=== PATIENT | female | born 1990 | race Caucasian/White ===

== ENCOUNTER 2020-09-22 21:03 | Emergency (ER) | payer BC, OTHER ==
[2020-09-22 21:13] VITALS: BP 137/87; PULSE 125
[2020-09-22] MEDS ORDERED: Sodium Chloride 0.9% 10 ML Syringe FLUSH PRN (21:23)
[2020-09-22] MEDS ORDERED: LORazepam 2 MG/ML SDV IVPUSH ONE (21:24)
[2020-09-22] MEDS ORDERED: Sodium Chloride 0.9% 1,000 ML IV SCH (21:30)
--- NOTE | 2020-09-22 21:31 | EDM.PDOC ---
ED HPI GENERAL MEDICAL PROBLEM - General Chief Complaint: Neurological Problem Stated Complaint: seizures had 3 this evening Time Seen by Provider: 09/22/20 21:12 Source of Information: Reports: Patient History Limitations: Reports: No Limitations - History of Present Illness INITIAL COMMENTS - FREE TEXT/NARRATIVE: The patient presents with a seizure. She says in the past 2 hours she has had 3 seizures. They have lasted a few seconds. They are generalized. She has a history of seizures and she is on lamictal and oxcarbazipine. She says after she gave in November she started to have seizures. She has seen neurologist and now she is under the care of neurology in [facility]. She had CT and MRI of her head. She has not missed any doses of her medications. She has not drank alcohol. She is getting enough sleep and she is eating and drinking okay. She has no fever, chills, cough, congestion, runny nose, chest pain or shortness of breath. She says she does have a little sore throat tonight. Onset: Sudden Duration: Hour(s): Location: Reports: Other (throat) Quality: Reports: Sharp Severity: Mild Improves with: Reports: None Worsens with: Reports: None Associated Symptoms: Reports: No Other Symptoms - Related Data Allergies Allergy/AdvReac Type Severity Reaction Status Date / Time zucchini Allergy Swelling Uncoded 09/22/20 21:13 Home Meds: Home Meds Loratadine [Claritin] 10 mg PO DAILY PRN 06/03/15 [History] LORazepam [Ativan] 1 mg PO DAILY PRN #6 tablet 09/22/20 [Rx] Lamictal. 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 Musculoskeletal History: Reports: Back Pain, Chronic - Past Surgical History HEENT Surgical History: Reports: Tonsillectomy Female Surgical History: Reports: Breast Biopsy, Other (See Below) Other Female Surgeries/Procedures: breast lumpectomy (benign) Musculoskeletal Surgical History: Reports: Other (See Below) Other Musculoskeletal Surgeries/Procedures:: back surgery Social & Family History - Tobacco Use Tobacco Use Status *Q: Never Tobacco User Second Hand Smoke Exposure: No - Caffeine Use Caffeine Use: Reports: None - Recreational Drug Use Recreational Drug Use: No ED ROS GENERAL - Review of Systems Review Of Systems: See Below Constitutional: Reports: No Symptoms HEENT: Reports: Throat Pain Respiratory: Reports: No Symptoms Cardiovascular: Reports: No Symptoms Endocrine: Reports: No Symptoms GI/Abdominal: Reports: No Symptoms : Reports: No Symptoms Musculoskeletal: Reports: No Symptoms - Physical Exam Exam: See Below Exam Limited By: No Limitations General Appearance: Alert, No Apparent Distress Ears: Normal External Exam Nose: Normal Inspection Throat/Mouth: Normal Inspection Head Exam: Atraumatic, Normocephalic Neck: Normal Inspection, Supple, Non-Tender Respiratory/Chest: No Respiratory Distress, Lungs Clear, Normal Breath Sounds Cardiovascular: Regular Rate, Rhythm, No Edema, No Murmur GI/Abdominal: Soft, Non-Tender, No Organomegaly, No Mass Neuro Exam (Abbreviated): Alert, Oriented, No Motor/Sensory Deficits Course - Vital Signs Last Recorded V/S: Last Vital Signs Temp 98.1 F 09/22/20 21:10 Pulse 125 H 09/22/20 21:10 Resp 16 09/22/20 21:10 BP 137/87 09/22/20 21:10 Pulse Ox 97 09/22/20 21:10 - Orders/Labs/Meds Orders: Active Orders 24 hr Category Date Time Status Cardiac Monitoring [RC] . DIRECTED Care 09/22/20 21:23 Active Peripheral IV Care [RC] . DIRECTED Care 09/22/20 21:24 Active LAMOTRIGINE, SERUM [REF] Stat Lab 09/22/20 21:25 Received OXCARBAZEPINE [REF] Stat Lab 09/22/20 21:25 Received Sodium Chloride 0.9% [Normal Saline] 1,000 ml Med 09/22/20 21:30 Active IV .BOLUS Sodium Chloride 0.9% [Saline Flush] Med 09/22/20 21:23 Active 10 ml FLUSH ASDIRECTED PRN Peripheral IV Insertion Adult [OM.PC] Stat Oth 09/22/20 21:23 Ordered Medication Orders Sodium Chloride (Normal Saline) 1,000 mls @ 1,000 mls/hr IV .BOLUS YARA Last Admin: 09/22/20 21:32 Dose: 1,000 mls/hr Documented by: MARTHA Sodium Chloride (Saline Flush) 10 ml FLUSH ASDIRECTED PRN PRN Reason: Keep Vein Open Last Admin: 09/22/20 21:34 Dose: 10 ml Documented by: MARTHA Labs: Laboratory Tests 09/22/20 09/22/20 09/22/20 Range/Units 21:25 21:25 21:25 WBC 5.27 (3.98-10.04) K/mm3 RBC 4.29 (3.98-5.22) M/mm3 Hgb 12.8 (11.2-15.7) gm/dl Hct 38.1 (34.1-44.9) % MCV 88.8 (79.4-94.8) fl MCH 29.8 (25.6-32.2) pg MCHC 33.6 (32.2-35.5) g/dl RDW Std Deviation 38.9 (36.4-46.3) fL Plt Count 340 (182-369) K/mm3 MPV 8.1 L (9.4-12.3) fl Neut % (Auto) 56.2 (34.0-71.1) % Lymph % (Auto) 30.6 (19.3-51.7) % [place] % (Auto) 9.7 (4.7-12.5) % Eos % (Auto) 2.5 (0.7-5.8) Baso % (Auto) 0.8 (0.1-1.2) % Neut # (Auto) 2.97 (1.56-6.13) K/mm3 Lymph # (Auto) 1.61 (1.18-3.74) K/mm3 [place] # (Auto) 0.51 H (0.24-0.36) K/mm3 Eos # (Auto) 0.13 (0.04-0.36) K/mm3 Baso # (Auto) 0.04 (0.01-0.08) K/mm3 Sodium 138 (136-145) mEq/L Potassium 4.2 (3.5-5.1) mEq/L Chloride 101 (98-107) mEq/L Carbon Dioxide 26 (21-32) mEq/L Anion Gap 15.2 H (5-15) BUN 9 (7-18) mg/dL Creatinine 1.2 H (0.55-1.02) mg/dL Est Cr Clr Drug Dosing 61.36 mL/min Estimated GFR (MDRD) 53 (>60) mL/min BUN/Creatinine Ratio 7.5 L (14-18) Glucose 70 L (74-106) mg/dL Calcium 9.3 (8.5-10.1) mg/dL Magnesium 2.2 (1.8-2.4) mg/dl Total Bilirubin 0.1 L (0.2-1.0) mg/dL AST 24 (15-37) U/L ALT 31 (14-59) U/L Alkaline Phosphatase 51 (46-116) U/L Total Protein 7.9 (6.4-8.2) g/dl Albumin 3.9 (3.4-5.0) g/dl Globulin 4.0 gm/dL Albumin/Globulin Ratio 1.0 (1-2) HCG, Qual Negative (NEGATIVE) Urine Color (Yellow) Urine Appearance (Clear) Urine pH (5.0-8.0) Ur Specific [place] (1.005-1.030) Urine Protein (Negative) Urine Glucose (UA) (Negative) Urine Ketones (Negative) Urine Occult Blood (Negative) Urine Nitrite (Negative) Urine Bilirubin (Negative) Urine Urobilinogen (0.2-1.0) Ur Leukocyte Esterase (Negative) Urine RBC (0-5) /hpf Urine WBC (0-5) /hpf Ur Epithelial Cells (0-5) /hpf Urine Bacteria (FEW) /hpf Urine Mucus (FEW) /hpf 09/22/ Range/Units 22:24 WBC (3.98-10.04) K/mm3 RBC (3.98-5.22) M/mm3 Hgb (11.2-15.7) gm/dl Hct (34.1-44.9) % MCV (79.4-94.8) fl MCH (25.6-32.2) pg MCHC (32.2-35.5) g/dl RDW Std Deviation (36.4-46.3) fL Plt Count (182-369) K/mm3 MPV (9.4-12.3) fl Neut % (Auto) (34.0-71.1) % Lymph % (Auto) (19.3-51.7) % [place] % (Auto) (4.7-12.5) % Eos % (Auto) (0.7-5.8) Baso % (Auto) (0.1-1.2) % Neut # (Auto) (1.56-6.13) K/mm3 Lymph # (Auto) (1.18-3.74) K/mm3 [place] # (Auto) (0.24-0.36) K/mm3 Eos # (Auto) (0.04-0.36) K/mm3 Baso # (Auto) (0.01-0.08) K/mm3 Sodium (136-145) mEq/L Potassium (3.5-5.1) mEq/L Chloride (98-107) mEq/L Carbon Dioxide (21-32) mEq/L Anion Gap (5-15) BUN (7-18) mg/dL Creatinine (0.55-1.02) mg/dL Est Cr Clr Drug Dosing mL/min Estimated GFR (MDRD) (>60) mL/min BUN/Creatinine Ratio (14-18) Glucose (74-106) mg/dL Calcium (8.5-10.1) mg/dL Magnesium (1.8-2.4) mg/dl Total Bilirubin (0.2-1.0) mg/dL AST (15-37) U/L ALT (14-59) U/L Alkaline Phosphatase (46-116) U/L Total Protein (6.4-8.2) g/dl Albumin (3.4-5.0) g/dl Globulin gm/dL Albumin/Globulin Ratio (1-2) HCG, Qual (NEGATIVE) Urine Color Yellow (Yellow) Urine Appearance Clear (Clear) Urine pH 6.5 (5.0-8.0) Ur Specific [place] 1.020 (1.005-1.030) Urine Protein Negative (Negative) Urine Glucose (UA) Negative (Negative) Urine Ketones Negative (Negative) Urine Occult Blood Negative (Negative) Urine Nitrite Negative (Negative) Urine Bilirubin Negative (Negative) Urine Urobilinogen 0.2 (0.2-1.0) Ur Leukocyte Esterase Negative (Negative) Urine RBC 0-5 (0-5) /hpf Urine WBC 0-5 (0-5) /hpf Ur Epithelial Cells 0-5 (0-5) /hpf Urine Bacteria Few (FEW) /hpf Urine Mucus Few (FEW) /hpf Meds: Medications Generic Name Dose Route Start Last Admin Trade Name Fre[place] PRN Reason Stop Dose Admin Sodium Chloride 1,000 mls @ 1,000 mls/hr 09/22/20 21:30 09/22/20 21:32 Normal Saline IV 1,000 mls/hr .BOLUS YARA Administration Sodium Chloride 10 ml 09/22/20 21:23 09/22/20 21:34 Saline Flush FLUSH 10 ml ASDIRECTED PRN Administration Keep Vein Open Discontinued Medications Generic Name Dose Route Start Last Admin Trade Name Freq PRN Reason Stop Dose Admin Lorazepam 1 mg 09/22/20 21:24 09/22/20 21:32 Ativan IVPUSH 09/22/20 21:25 1 mg ONETIME ONE Administration - Re-Assessments/Exams Free Text/Narrative Re-Assessment/Exam: 09/22/20 21:30 I ordered an IV NS 1L bolus, ativan 1mg IV, labs and a UA. 09/22/20 22:58 Her CBC looks good. Her anion gap was elevated at 15.2. Her creatinine was elevated at 1.2. Her glucose was 70. Her HCG is negative. Her UA shows no UTI. She feels better. I will give her a couple doses of ativan to take and she can call her neurologist on Thursday. Departure - Departure Time of Disposition: 23:00 Disposition: Home, Self-Care 01 Condition: Good Clinical Impression: Seizure - Discharge Information *PRESCRIPTION DRUG MONITORING PROGRAM REVIEWED*: Not Applicable *COPY OF PRESCRIPTION DRUG MONITORING REPORT IN PATIENT NANCY: Not Applicable Prescriptions: LORazepam [Ativan] 1 mg PO DAILY PRN #6 tablet PRN Reason: Seizures Referrals: PCP,Not In Area [Primary Care Provider] - Forms: ED Department Discharge Additional Instructions: Drink plenty of fluids. Take your medications as prescribed. Take the ativan every 8 hours as needed for seizures. Please return if you are worse. Sepsis Event Note (ED) - Evaluation Sepsis Screening Result: No Definite Risk - Focused Exam Vital Signs: Vital Signs Temp Pulse Resp BP Pulse Ox 09/22/20 21:10 98.1 F 125 H 16 137/87 97 - My Orders Last 24 Hours: My Active Orders 09/22/20 21:23 Cardiac Monitoring [RC] . DIRECTED Sodium Chloride 0.9% [Saline Flush] 10 ml FLUSH ASDIRECTED PRN Peripheral IV Insertion Adult [OM.PC] Stat 09/22/20 21:24 Peripheral IV Care [RC] . DIRECTED 09/22/20 21:25 LAMOTRIGINE, SERUM [REF] Stat OXCARBAZEPINE [REF] Stat 09/22/20 21:30 Sodium Chloride 0.9% [Normal Saline] 1,000 ml IV .BOLUS - Assessment/Plan Last 24 Hours: My Active Orders 09/22/20 21:23 Cardiac Monitoring [RC] . DIRECTED Sodium Chloride 0.9% [Saline Flush] 10 ml FLUSH ASDIRECTED PRN Peripheral IV Insertion Adult [OM.PC] Stat 09/22/20 21:24 Peripheral IV Care [RC] . DIRECTED 09/22/20 21:25 LAMOTRIGINE, SERUM [REF] Stat OXCARBAZEPINE [REF] Stat 09/22/20 21:30 Sodium Chloride 0.9% [Normal Saline] 1,000 ml IV .BOLUS
== END 2020-09-22 23:16 | disposition home or self-care (01) ==
LOC: JD.ED 21:03
DX: R56.9 Unspecified convulsions (principal); Z88.8 Allergy status to other drugs, medicaments and biological substances; Z79.899 Other long term (current) drug therapy
CPT/HCPCS: 36415; 80053; 80175; 80183; 81001; 83735; 84703; 85025; 96374; 99284; J2060; J7030

== ENCOUNTER 2020-09-26 22:41 | Emergency (ER) | payer OTHER ==
[2020-09-26 22:57] VITALS: BP 127/86; PULSE 100
--- NOTE | 2020-09-27 00:13 | EDM.PDOCBH ---
ED HPI GENERAL MEDICAL PROBLEM - General Chief Complaint: Behavioral/Psych Stated Complaint: withdrawl from pills and poss seizures Time Seen by Provider: 09/26/20 23:38 Source of Information: Reports: Patient History Limitations: Reports: No Limitations - History of Present Illness INITIAL COMMENTS - FREE TEXT/NARRATIVE: Mrs. Jeronimo is a very pleasant 30-year-old woman who now presents to the ED for medical clearance in order to go to [facility] for treatment of tramadol abuse. She states that she has been on tramadol since approximately 2009, following lumbar microdiscectomy, but that she has been abusing it, taking up to 6 to 8 tablets/day (not every day) for the past 1.5 to 2 years. Her last dose was around 21:00 tonight. She states that she is prescribed tramadol by numerous prescribers, including her pain clinical safety manager, however, in a review of the [facility], I find that all of her prescriptions for tramadol have been prescribed by her pain clinical safety manager, with the last prescription for tramadol not written by her pain clinical safety manager on 02/20/2018. Her most recent prescription for tramadol was for 240 tablets, a 30-day supply (8 tablets per day), filled on 08/17/2020. The patient states that she met her new Psychiatrist 2 days ago, and that her Psychiatrist uncovered her abuse and recommended treatment at [facility]. The patient states that her Psychiatrist started her on Effexor, while at the same time, her Neurologist started her on clonazepam 0.5 mg po BID; she states that she took her first dose of clonazepam this morning, but it had a much more profound effect than she anticipated, therefore she has not taken an evening dose. The patient states that she has stopped tramadol several times in the past, although she has never previously been to drug treatment. The patient may have a seizure disorder. It is not clear if the patient is suffering from seizures or pseudoseizures. She states that she has undergone numerous EEGs, none of which showed epileptiform activity, however, she is currently being treated with lamotrigine, and is also tapering off of oxcarbazepine because it does not seem to be doing anything. Medical records indicate that she was seen in this ED this past 09/22/2020 for a report of 3 seizures in the prior 2 hours, each lasting only a few seconds. No precipitators were identified. She was found to be tachycardic at 125 bpm, ot herwise, she was hemodynamically stable, afebrile, saturating 97% on room air. Her physical exam, including her neurologic exam, was entirely unremarkable. Work-up included a CBC, CMP, magnesium level, urinalysis, and urine test. Her entire work-up was completely normal, including no elevation of WBC count or blood glucose, which would be unusual in the setting of a recent genuine seizure. She was treated with 1 L of IV fluid and 1 mg of IV lorazepam, then discharged home with a prescription for 6 tablets of lorazepam 1 mg, to be taken every 8 hours as needed. There was no mention to the Emergency Physician at that time of her use of tramadol, nor did she report to the triage nurse tramadol on her medication list. Here in the ED tonight, the patient is found to be hemodynamically stable, afebrile, saturating 98% on room air. She states that she is not suffering from any withdrawal symptoms at this time. The patient denies having a recent fever, chills, sore throat, ear pain, nasal or sinus congestion, cough, dyspnea, chest pain, palpitations, nausea, vomiting, constipation, diarrhea, abdominal pain, urinary symptoms, recent weight gain or weight loss, recent bloody bowel movements or black bowel movements, recent joint aches, headaches, or rashes. The patient's PCP is Zoey Ghosh NP, in [place]. Her Psychiatrist is Dr. Fatmata Gilmore. Her Neurologist is Dr. Sander Clarke, at [facility]. Her pain clinical safety manager is Tina Zepeda NP, in [place]. She has already received an influenza vaccine this season. Back Pain Score (Numeric/FACES): 5 - Related Data Allergies Allergy/AdvReac Type Severity Reaction Status Date / Time zucchini Allergy Severe Swelling Uncoded 09/26/20 22:57 Home Meds: Home Meds Loratadine [Claritin] 10 mg PO DAILY PRN 06/03/15 [History] Mirtazapine 15 mg PO BEDTIME 09/22/20 [History] OXcarbazepine [Oxtellar Xr] 300 mg PO DAILY 09/22/20 [History] Acetaminophen/Codeine [Tylenol with Codeine No.3 300MG/30MG] 1 - 2 tab PO TID PRN 09/26/20 [History] ClonazePAM [KlonoPIN] 0.5 mg PO BID 09/26/20 [History] EPINEPHrine [Auvi-Q] 1 applic INJECT ASDIRECTED PRN 09/26/20 [History] LORazepam [Ativan] 0.25 mg PO DAILY PRN 09/26/20 [History] LORazepam [Ativan] 1 mg PO ASDIRECTED PRN 09/26/20 [History] Loratadine [Claritin] 10 mg PO ASDIRECTED PRN 09/26/20 [History] Venlafaxine [Effexor XR] 37.5 mg PO DAILY 09/26/20 [History] lamoTRIgine [Lamotrigine] 150 mg PO BID 09/26/20 [History] Past Medical History HEENT History: Reports: Allergic Rhinitis Neurological History: Reports: Seizure (vs pseudoseizures, since Nov 2019) Psychiatric History: Reports: Addiction (tramadol), Anxiety, Depression - Past Surgical History HEENT Surgical History: Reports: Adenoidectomy, Oral Surgery (dental extractons), Tonsillectomy Female Surgical History: Reports: Breast Biopsy (right, benign) Neurological Surgical History: Reports: Lumbar Spine (L5-S1 microdiscectomy, 2009) Social & Family History - Tobacco Use Tobacco Use Status *Q: Never Tobacco User - Caffeine Use Caffeine Use: Reports: Coffee, Soda - Alcohol Use Alcohol Use History: No Date/Time of Last Drink Comment: None since 2016 or 2017 - Recreational Drug Use Recreational Drug Use: Yes Drug Use in Last 12 Months: Yes Recreational Drug Type: Reports: Other (see below) (Tramadol abuse 2017 until 09/26/2020) - Living Situation & Occupation Living situation: Reports: , with Spouse, with Family (1 baby) 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 ED EXAM, BEHAVIORAL HEALTH - Physical Exam Exam: See Below Exam Limited By: No Limitations General Appearance: Alert, No Apparent Distress, Thin Eye Exam: Bilateral Eye: EOMI, Normal Inspection Ears: Normal External Exam, Hearing Grossly Normal Nose: Normal Inspection Throat/Mouth: Normal Inspection, Normal Lips, Normal Voice, No Airway Compromise Head: Atraumatic, Normocephalic Neck: Normal Inspection, Full Range of Motion Respiratory/Chest: No Respiratory Distress, Lungs Clear, Normal Breath Sounds, No Accessory Muscle Use Cardiovascular: Normal Peripheral Pulses, Regular Rate, Rhythm, No Edema, No Gallop, No JVD, No Murmur, No Rub GI/Abdominal: Normal Bowel Sounds, Soft, Non-Tender, No Organomegaly, No Distention, No Abnormal Bruit, No Mass Back Exam: Normal Inspection, Full Range of Motion, NT Extremities: Normal Inspection, Normal Range of Motion, No Pedal Edema, Normal Capillary Refill Neurological: Alert, Normal Cognition, No Motor/Sensory Deficits, Oriented x 3 Psychiatric: Normal Affect Skin Exam: Warm, Dry, Intact, Normal color, No rash #1 Interpretation EKG Date: 09/27/20 Time: 00:19 Rhythm: Other (Sinus tachycardia) Rate (Beats/Min): 102 [place]: Normal (borderline RAD) P-Wave: Enlarged (LAE) QRS: Normal ST-T: Normal QT: Prolonged (QTc 488 ms) Comparison: NA - No Prior EKG COURSE, BEHAVIORAL HEALTH COMP - Course Vital Signs: Last Vital Signs Temp 36.6 C 09/26/20 22:55 Pulse 100 09/26/20 22:55 Resp 20 09/26/20 22:55 BP 127/86 09/26/20 22:55 Pulse Ox 98 09/26/20 22:55 Orders, Labs, Meds: Active Orders 24 hr Category Date Time Status EKG Documentation Completion [RC] STAT Care 09/27/20 00:10 Active Laboratory Tests 09/27/20 09/27/20 09/27/20 Range/Units 00:20 00:20 00:20 WBC 5.77 (3.98-10.04) K/mm3 RBC 4.18 (3.98-5.22) M/mm3 Hgb 12.2 (11.2-15.7) gm/dl Hct 38.3 (34.1-44.9) % MCV 91.6 (79.4-94.8) fl MCH 29.2 (25.6-32.2) pg MCHC 31.9 L (32.2-35.5) g/dl RDW Std Deviation 40.4 (36.4-46.3) fL Plt Count 291 (182-369) K/mm3 MPV 8.5 L (9.4-12.3) fl Neutrophils % (Manual) 49 (40-60) % Band Neutrophils % 0 (0-10) % Lymphocytes % (Manual) 41 H (20-40) % Atypical Lymphs % 0 % Monocytes % (Manual) 1 L (2-10) % Eosinophils % (Manual) 7 H (0.7-5.8) % Basophils % (Manual) 2 H (0.1-1.2) Platelet Estimate Adequate RBC Morph Comment Normal Sodium 139 (136-145) mEq/L Potassium 4.9 (3.5-5.1) mEq/L Chloride 104 (98-107) mEq/L Carbon Dioxide 31 (21-32) mEq/L Anion Gap 8.9 (5-15) BUN 10 (7-18) mg/dL Creatinine 1.1 H (0.55-1.02) mg/dL Est Cr Clr Drug Dosing 66.94 mL/min Estimated GFR (MDRD) 58 (>60) mL/min BUN/Creatinine Ratio 9.1 L (14-18) Glucose 85 (74-106) mg/dL Calcium 9.3 (8.5-10.1) mg/dL Magnesium 2.0 (1.8-2.4) mg/dl Total Bilirubin 0.1 L (0.2-1.0) mg/dL AST 26 (15-37) U/L ALT 38 (14-59) U/L Alkaline Phosphatase 47 (46-116) U/L Total Protein 7.2 (6.4-8.2) g/dl Albumin 3.5 (3.4-5.0) g/dl Globulin 3.7 gm/dL Albumin/Globulin Ratio 1.0 (1-2) TSH 3rd Generation 3.919 H (0.358-3.74) uIU/mL Urine HCG, Qual (NEGATIVE) Salicylates 1.3 L (2.8-20) mg/dL Urine Opiates Screen (LRPUCL=448) Ur Buprenorphine Scrn (CUTOFF=10) Ur Oxycodone Screen (NQJ7XA=610) Urine Methadone Screen (EHSPUG=378) Ur Propoxyphene Screen (TICQPO=375) Acetaminophen 0 L (10-30) ug/mL Ur Barbiturates Screen (GBJBBP=750) Ur Tricyclics Screen (TQPOJS=129) Ur Phencyclidine Scrn (CUTOFF=25) Ur Amphetamine Screen (AZSVZR=293) U Methamphetamines Scrn (BETRDA=948) U Benzodiazepines Scrn (SVEIOX=886) U Cocaine Metab Screen (WILKLS=581) U Marijuana (THC) Screen (CUTOFF=50) Ethyl Alcohol 0.00 (0.00) gm% 09/27/20 09/27/20 Range/Units 00:40 00:40 WBC (3.98-10.04) K/mm3 RBC (3.98-5.22) M/mm3 Hgb (11.2-15.7) gm/dl Hct (34.1-44.9) % MCV (79.4-94.8) fl MCH (25.6-32.2) pg MCHC (32.2-35.5) g/dl RDW Std Deviation (36.4-46.3) fL Plt Count (182-369) K/mm3 MPV (9.4-12.3) fl Neutrophils % (Manual) (40-60) % Band Neutrophils % (0-10) % Lymphocytes % (Manual) (20-40) % Atypical Lymphs % % Monocytes % (Manual) (2-10) % Eosinophils % (Manual) (0.7-5.8) % Basophils % (Manual) (0.1-1.2) Platelet Estimate RBC Morph Comment Sodium (136-145) mEq/L Potassium (3.5-5.1) mEq/L Chloride (98-107) mEq/L Carbon Dioxide (21-32) mEq/L Anion Gap (5-15) BUN (7-18) mg/dL Creatinine (0.55-1.02) mg/dL Est Cr Clr Drug Dosing mL/min Estimated GFR (MDRD) (>60) mL/min BUN/Creatinine Ratio (14-18) Glucose (74-106) mg/dL Calcium (8.5-10.1) mg/dL Magnesium (1.8-2.4) mg/dl Total Bilirubin (0.2-1.0) mg/dL AST (15-37) U/L ALT (14-59) U/L Alkaline Phosphatase (46-116) U/L Total Protein (6.4-8.2) g/dl Albumin (3.4-5.0) g/dl Globulin gm/dL Albumin/Globulin Ratio (1-2) TSH 3rd Generation (0.358-3.74) uIU/mL Urine HCG, Qual Negative (NEGATIVE) Salicylates (2.8-20) mg/dL Urine Opiates Screen Presumptive positive H (AVKYOR=474) Ur Buprenorphine Scrn Negative (CUTOFF=10) Ur Oxycodone Screen Negative (RZW6IP=083) Urine Methadone Screen Negative (SMLSMY=168) Ur Propoxyphene Screen Negative (MCLQRQ=984) Acetaminophen (10-30) ug/mL Ur Barbiturates Screen Negative (LLMQVJ=493) Ur Tricyclics Screen Negative (MYXOKF=031) Ur Phencyclidine Scrn Negative (CUTOFF=25) Ur Amphetamine Screen Negative (OATRWZ=761) U Methamphetamines Scrn Negative (OZNXCF=788) U Benzodiazepines Scrn Negative (BCIHQR=492) U Cocaine Metab Screen Negative (DBGFKM=871) U Marijuana (THC) Screen Negative (CUTOFF=50) Ethyl Alcohol (0.00) gm% Medical Clearance: 09/27/20 00:11 As above, the patient has abused tramadol for approximately 2 years, and is now here for medical clearance to go to [facility]. She is not suffering from any withdrawal symptoms at this time. I have ordered a work-up that includes several blood tests, a urine drug screen, a urine test, and an ECG. 09/27/20 01:24 The patient's CBC is unremarkable. Her CMP is remarkable for a Cr is elevated at 1.1 with a BUN normal at 10, and the remainder of her CMP being unremarkable. Her magnesium level is within normal limits at 2.0. Her TSH is slightly elevated at 3.919. Her acetaminophen level is 0. Her salicylate level is within normal limits at 1.3. Her EtOH level is 0.00. Her urine drug screen is positive for opiates, and is otherwise negative. Her urine test is negative. The patient appears to be medically fit to go to [facility]. We will contact them. 09/27/20 01:31 [facility] has been notified, and they will come to get the patient. Departure - Departure Time of Disposition: 01:31 Disposition: Home, Self-Care 01 Condition: Good Clinical Impression: Opioid abuse, Elevated TSH - Discharge Information *PRESCRIPTION DRUG MONITORING PROGRAM REVIEWED*: No *COPY OF PRESCRIPTION DRUG MONITORING REPORT IN PATIENT NANCY: No Instructions: Substance Use Disorder Referrals: Fatmata Gilmore MD [Primary Care Provider] - Zoey Ghosh NP [Ordering Only Provider] - Tina Zepeda NP [Ordering Only Provider] - Forms: ED Department Discharge Additional Instructions: You were seen in the emergency room for medical clearance to go to [facility] for treatment of tramadol abuse. Work-up in the ER included several blood tests, a urine drug screen, a urine test, and an ECG. Your blood work found your TSH to be slightly elevated at 3.919. This should be rechecked at a later time. Your urine drug screen was positive for opiates, which is expected with tramadol, and was otherwise negative. The remainder of your work-up was completely unremarkable. You are medically fit to go to [facility]. We recommend that you continue to take your usual Claritin, Effexor XR, mirtazapine, and lamotrigine as prescribed. You should continue to taper off your oxcarbazepine directed by your Neurologist. You may continue to take clonazepam 0.5 mg either once or twice a day as needed. We recommend that you NOT continue to take lorazepam (Ativan) or any opioids. If any other problems, please do not hesitate to return to the ER. Sepsis Event Note (ED) - Evaluation Sepsis Screening Result: No Definite Risk - Focused Exam Vital Signs: Vital Signs Temp Pulse Resp BP Pulse Ox 09/26/20 22:55 36.6 C 100 20 127/86 98 - My Orders Last 24 Hours: My Active Orders 09/27/20 00:10 EKG Documentation Completion [RC] STAT - Assessment/Plan Last 24 Hours: My Active Orders 09/27/20 00:10 EKG Documentation Completion [RC] STAT
== END 2020-09-27 02:43 | disposition home or self-care (01) ==
LOC: SUPCPDRO 22:41 → JD.ED 22:41
DX: F11.10 Opioid abuse, uncomplicated (principal); R94.6 Abnormal results of thyroid function studies; R56.9 Unspecified convulsions; F41.9 Anxiety disorder, unspecified; F32.9 Major depressive disorder, single episode, unspecified; Z79.899 Other long term (current) drug therapy; Z91.018 Allergy to other foods
CPT/HCPCS: 36415; 80053; 80306; 80307; 81025; 83735; 84443; 85007; 85027; 93005; 99282-25